=== PATIENT | female | born 1955 | race African-American/Black ===

== ENCOUNTER 2017-03-21 20:10 | Emergency (ER) | payer MEDICAID, OTHER ==
[~2017-03-21] VITALS: Ht 165.1 cm; Wt 68.0 kg
[~2017-03-21 20:10] MED LIST: AMLO10TA4 PO; HYDR-4134 PO; HYDR-523 PO; PROT20 PO
[2017-03-21] MEDS ORDERED: HYDROCODONE/ACETAMINOPHEN 5/325MG TABLET PO ONE (21:30)
[2017-03-21 22:05] VITALS: BP 124/70
== END 2017-03-21 22:44 | disposition home or self-care (01) ==
LOC: ER 22:39
DX: S93.401A Sprain of unspecified ligament of right ankle, initial encounter (principal); I10 Essential (primary) hypertension; E11.9 Type 2 diabetes mellitus without complications; F32.9 Major depressive disorder, single episode, unspecified; F17.210 Nicotine dependence, cigarettes, uncomplicated; Z88.5 Allergy status to narcotic agent; Z88.8 Allergy status to other drugs, medicaments and biological substances; Z79.899 Other long term (current) drug therapy; W01.0XXA Fall on same level from slipping, tripping and stumbling without subsequent striking against object, initial encounter; Y93.01 Activity, walking, marching and hiking; Y92.9 Unspecified place or not applicable; Y99.8 Other external cause status
CPT/HCPCS: 99282

== ENCOUNTER 2024-03-16 15:46 | Emergency (ER) | payer MEDICARE, MEDICAID ==
[~2024-03-16] VITALS: Ht 162.6 cm; Wt 66.0 kg
[~2024-03-16 15:46] MED LIST changes: +AMIT25TA9 PO; -HYDR-4134 PO; -HYDR-523 PO; +MELO-106 PO; +OXYC15TA PO; +TIZA4CAP6 PO
[2024-03-16 16:36] VITALS: O2SAT 100
[2024-03-16] MEDS ORDERED: IBUP-1523 MT (19:10)
[2024-03-16] MEDS ORDERED: TRAM50TA3 MT (19:10)
[2024-03-16] MEDS ORDERED: TOPUD MT (19:10)
[2024-03-16] MEDS: HYDROCODONE/ACETAMINOPHEN 5/325MG TABLET PO ONE (19:46)
[2024-03-16] MEDS ORDERED: HYDR-4001 MT (20:01)
[2024-03-16 20:10] VITALS: BP 120/79; PULSE 70; RESP 18; TEMP 98.5
== END 2024-03-16 20:11 | disposition home or self-care (01) ==
LOC: ER 15:46
DX: M25.511 Pain in right shoulder (principal); J45.909 Unspecified asthma, uncomplicated; K21.9 Gastro-esophageal reflux disease without esophagitis; I10 Essential (primary) hypertension; Z79.899 Other long term (current) drug therapy
CPT/HCPCS: 73030; 99283

== ENCOUNTER 2024-07-14 15:20 | Emergency (ER) | payer MEDICARE, MEDICAID ==
[~2024-07-14] VITALS: Ht 167.6 cm; Wt 68.0 kg
[~2024-07-14 15:20] MED LIST changes: +HYDR-4001 MT; +IBUP-1523 MT; +TOPUD MT
[2024-07-14 15:23] VITALS: O2SAT 99
[2024-07-14 16:07] LABS: BASOPHILS % 0.4 % (0.0-2.0); CHLORIDE 104 mEq/L (98-107); DIFFERENTIAL COMMENT 0; HEMOGLOBIN. 15.2 g/dL (12.0-16.0); LYMPHOCYTES % 18.2 % (20.0-50.0); MEAN CORPUSCULAR HGB CONC 33.2 g/dL (31.0-37.0); MEAN CORPUSCULAR VOLUME 105.5 fL (81.0-99.0); MEAN PLATELET VOLUME 7.1 fl (7.4-10.4); MONOCYTES % 2.3 % (2.0-8.0); NEUTROPHILS % 79.1 % (40.0-76.0); PLATELET 212 x1000/uL (130-400); POTASSIUM 3.4 mEq/L (3.5-5.1); RED BLOOD CELL COUNT 4.35 mill/uL (4.2-5.4); RED CELL DISTRIBUTION WIDTH 14.1 % (11.6-14.6); WHITE BLOOD COUNT 5.8 x1000/uL (4.5-11.0)
[2024-07-14 16:08] LABS: CARBON DIOXIDE 25 mEq/L (21-32); SODIUM 135 mEq/L (136-145)
[2024-07-14 16:09] LABS: CALCIUM 10.6 mg/dL (8.7-10.4)
[2024-07-14 16:13] LABS: CREATININE 0.7 mg/dL (0.6-1.0); GLUCOSE 145 mg/dL (70-105)
[2024-07-14 16:14] LABS: UREA NITROGEN BLOOD 12 mg/dL (9-23)
[2024-07-14 16:15] LABS: ALANINE AMINOTRANSFERASE 26 IU/L (10-49); ALBUMIN 5.3 g/dL (3.2-4.8); ASPARTATE AMINOTRANSFERASE 25 IU/L (<34)
[2024-07-14 16:16] LABS: BILIRUBIN DIRECT 0.2 mg/dL (<=3.0); BILIRUBIN TOTAL 0.4 mg/dL (0.1-1.0); PROTEIN TOTAL 8.7 g/dL (6.0-8.3)
[2024-07-14] MEDS: KETOROLAC 30MG/ML VIAL IV STA (16:20)
[2024-07-14] MEDS: ONDANSETRON HCL 4MG/2ML INJ IV STA (16:20)
[2024-07-14] MEDS: SODIUM CHLORIDE 0.9% 1,000 ML IV ONE (16:20)
[2024-07-14 16:22] LABS: PROTHROMBIN TIME 10.9 sec (9.6-11.0)
[2024-07-14 16:38] LABS: ETHANOL BLOOD < 10 mg/dL (<10); TROPONIN I HIGH SENSITIVITY < 4 ng/L (3.0-34)
[2024-07-14] MEDS: MORPHINE SULFATE 4 MG/ML INJ (FOR IV/IM USE) IV ONE (19:38)
[2024-07-14] MEDS ORDERED: LOPE2CAP MT (22:43)
[2024-07-14] MEDS ORDERED: ONDA4TAB11 PO (22:43)
[2024-07-14 23:37] VITALS: BP 134/77; PULSE 70; RESP 18; TEMP 37.05852; O2SAT 99
== END 2024-07-14 23:38 | disposition home or self-care (01) ==
LOC: ER 15:20
DX: A08.4 Viral intestinal infection, unspecified (principal); J45.909 Unspecified asthma, uncomplicated; K21.9 Gastro-esophageal reflux disease without esophagitis; I10 Essential (primary) hypertension; Z98.890 Other specified postprocedural states; Z88.5 Allergy status to narcotic agent; Z88.8 Allergy status to other drugs, medicaments and biological substances
CPT/HCPCS: 80076; 80048; 80320; 83880; 83690; 85025; 85610; 84484; 36415; 71045; 93005; 96361; 96374; 96375; 99285; J1885; J2405; J2270; J7030; G0480